=== PATIENT | female | born 1970 | race Caucasian/White ===

== ENCOUNTER 2017-12-04 01:01 | Emergency (ER) | payer OTHER ==
[~2017-12-04] VITALS: Ht 162.6 cm; Wt 104.3 kg
[2017-12-04 01:02] VITALS: BP 134/85
[2017-12-04] MEDS ORDERED: ULTRAM PO STA (01:30)
[2017-12-04] MEDS ORDERED: ULTRAM ONE (01:50)
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
[2017-12-04 02:31] LABS: BILIRUBIN,URINE NEGATIVE (NEGATIVE); UROBILINOGEN,URINE NORMAL (NEGATIVE)
[2017-12-04 02:35] LABS: APPEARANCE,URINE HAZY (CLEAR); UA COLOR YELLOW (YELLOW)
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
[2017-12-04 02:55] VITALS: BP 134/85
== END 2017-12-04 02:40 | disposition home or self-care (01) ==
LOC: EDBD 01:01 → ER 01:01
DX: S33.5XXA Sprain of ligaments of lumbar spine, initial encounter (principal); S23.3XXA Sprain of ligaments of thoracic spine, initial encounter; S09.90XA Unspecified injury of head, initial encounter; E07.9 Disorder of thyroid, unspecified; Z90.49 Acquired absence of other specified parts of digestive tract; Z88.2 Allergy status to sulfonamides; Z98.51 Tubal ligation status; Y04.0XXA Assault by unarmed brawl or fight, initial encounter
CPT/HCPCS: 72040; 72070; 72100; 81000; 81025; 87086; 99285

== ENCOUNTER → 2017-12-15 | Outpatient (CLI) | payer OTHER | END | disposition home or self-care (01) | LOC: LAB 18:03 | PROVIDERS: ATTEND Internal Medicine Endocrinology, Diabetes & Metabolism | DX: E03.9 Hypothyroidism, unspecified (principal); I10 Essential (primary) hypertension | CPT/HCPCS: 36415; 84439; 84443 ==

== ENCOUNTER 2018-05-03 09:54 | Emergency (ER) | payer OTHER ==
[~2018-05-03] VITALS: Ht 157.5 cm; Wt 102.5 kg
[2018-05-03 10:14] VITALS: BP 112/66
--- NOTE | 2018-05-03 10:14 | NUR ---
ARRIVAL PATIENT ARRIVED TO [facility] AMBULATORY, C/O OF SORE THROAT AND COUGH FOR THE PAST 3 WEEKS, HAS SEEN TAE LANGLEY AND GIVEN ANTIBIOTICS BUT SORE THROAT RETURNS, DECIDED TO COME TO THE ED FOR FURTHER EVAL BY EDP.
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
[2018-05-03 10:21] VITALS: BP 112/66
== END 2018-05-03 10:25 | disposition home or self-care (01) ==
LOC: ER 09:54
DX: J04.0 Acute laryngitis (principal); Z88.2 Allergy status to sulfonamides; Z90.49 Acquired absence of other specified parts of digestive tract; Z98.51 Tubal ligation status
CPT/HCPCS: 99283

== ENCOUNTER 2018-07-17 17:39 | Emergency (ER) | payer OTHER ==
[~2018-07-17] VITALS: Ht 162.6 cm; Wt 97.5 kg
[2018-07-17 17:59] VITALS: BP 138/102
[2018-07-17] MEDS ORDERED: AUGMENTIN 875-125 TABLET PO STA (18:07)
[2018-07-17] MEDS ORDERED: AUGMENTIN 875-125 TABLET ONE (18:07)
--- NOTE | 2018-07-17 18:09 | ER.PDOC ---
General Chief Complaint: Sore Throat Stated Complaint: HEADACHE SORE THROAT Time seen by MD: 19:58 Source: patient Exam Limitations: no limitations History of Present Illness Initial Comments one day of sore throat with white suff on her tonsils, no cough or runny nose no definite fever, took excedrin for pain Timing/Duration: gradual Associated Symptoms: mod sore throat Severity: moderate Allergies: Coded Allergies: Sulfa (Sulfonamide Antibiotics) (Verified Allergy, Unknown, 09/02/15) Home Meds Unable to Obtain Active Prescriptions or Reported Meds Past Medical History Medical History: thyroid disease Surgical History: cholecystectomy, other Social History Smoking: non-smoker Alcohol Use: none Drug Use: none Constitutional: denies chills Eyes: denies drainage, denies pain Ears: denies pain, denies clear discharge Nose: denies pain, denies clear discharge, denies purulent discharge Mouth: denies pain Throat: pain; denies hoarse, denies muffled Respiratory: denies cough, denies shortness of breath Cardiovascular: denies chest pain Gastrointestinal: denies abdominal pain, denies diarrhea, denies vomiting Musculoskeletal: denies back pain Skin: denies rash Neurological: denies anxiety, denies headache Hematologic/Lymphatic: denies blood clots Physical Exam General Appearance: alert, no distress Head/Neck: head nml inspection, trachea midline, cervical lymphadenopathy Eyes: eyes nml inspection, PERRL Mouth: lips, gums nml, no drooling, membranes nml Throat: no airway problems, pharyngeal erythema, tonsillar exudate, tonsillar swelling Ears/Nose: nml inspection Respiratory: no resp. distress, lungs clear CVS: reg. rate & rhythm, heart sounds nml Abdomen: non-tender Extremities: non-tender Skin Exam: Normal Color, Warm/Dry NEURO/PSYCH: oriented X3 Comments no signs of tonsilar abscess, ant lymphadenopathy, exudative pharyngitis. Results/Orders Results/Orders Orders - LIANET CASTELAN MD Amoxicillin/Potassium Clav (Augmentin 87 (07/17/18 18:07) Vital Signs Date Time Temp Pulse Resp B/P (MAP) Pulse Ox O2 Delivery O2 Flow Rate FiO2 07/17/18 17:59 98.3 100 18 138/102 (114) 98 Room Air 98.3 07/17/18 17:55 98.3 100 18 98.3 07/17/18 17:55 98.3 100 18 98 Room Air 98.3 Administered Medications Medications (Trade) Dose Ordered Sig/Rex Route PRN Reason Start Time Stop Time Status Last Admin Dose Admin Amoxicillin/ Clavulanate Potassium (Augmentin 875-125 Tablet) 1 each STAT STAT PO 07/17/18 18:07 07/17/18 18:08 UNV 07/17/18 18:09 1 EACH Departure Time of Disposition: 18:08 Disposition: 09 ADMITTED INPATIENT Impression: Primary Impression: Pharyngitis Condition: Stable Patient Instructions: Sore Throat, [id number] Referrals: QUYEN ALAS LANDSCAPE ARTIST (PCP) PRIMARY CARE PROVIDER Additional Instructions: return for any worsening symptoms Scripts Unable to Obtain Active Prescriptions or Reported Meds Duration or Time Spent with Pa: 10 LIANET CASTELAN MD July 17, 2018 18:09
[2018-07-17 18:11] VITALS: BP 138/102
== END 2018-07-17 18:15 | disposition other institution (70) ==
LOC: ER 17:39
DX: J02.9 Acute pharyngitis, unspecified (principal); E07.9 Disorder of thyroid, unspecified; Z88.2 Allergy status to sulfonamides; Z90.49 Acquired absence of other specified parts of digestive tract
CPT/HCPCS: 99285

== ENCOUNTER 2018-08-04 22:12 | Emergency (ER) | payer OTHER ==
[~2018-08-04] VITALS: Ht 157.5 cm; Wt 98.4 kg
[2018-08-04 22:40] VITALS: BP 154/108
[2018-08-04 23:50] VITALS: BP 149/99
[2018-08-05 00:35] VITALS: BP 131/78
--- NOTE | 2018-08-05 00:48 | DIREP ---
PROCEDURE:XRAY KNEE 3 VIEWS-LT COMPARISON:None. INDICATIONS:KNEE PAIN FINDINGS: BONES:Normal. JOINTS:Normal, except for mild degenerative arthritis. SOFT TISSUES:Normal. OTHER:No additional findings. CONCLUSION:Mild degenerative arthritis of the left knee. No fracture or subluxation. Dictated by: John Duvall M.D. on 08/05/2018 at 00:47 AM
[2018-08-05] MEDS ORDERED: TORADOL IM STA (01:20)
--- NOTE | 2018-08-05 01:20 | ER.PDOC ---
General Chief Complaint: Requesting Medical Care Stated Complaint: KNEE PAIN Time seen by MD: 01:10 Source: patient Exam Limitations: no limitations History of Present Illness Initial Comments 48 YO FEMALE WITH LEFT KNEE PAIN X 2 WKS. PAIN PROGRESSIVELY WORSEN THROUGH THE DAY. SHE IS UNAWARE OF ANY INJURIES.. 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 PAIN IS 8/10, CONSTANT. SHE DENIES FEVER OR CHILLS. SHE IS NOT TAKEN ANY MEDICATIONS FOR THE PAIN. Onset: last week Recent Injury: No Severity: severe Exacerbated By: walking movement Relieved By: nothing Prior symptoms/Treatment: No Similar symptoms previous, No Recenly Seen, No Treated by Doctor, No Recently Hospitalized Allergies: Coded Allergies: Sulfa (Sulfonamide Antibiotics) (Verified Allergy, Unknown, 09/02/15) Home Meds Unable to Obtain Active Prescriptions or Reported Meds Past Medical History Medical History: thyroid disease (THYROID CANCER) Surgical History: cholecystectomy, tubal, other Family History Significant Family History: no pertinent family hx Social History Smoking: non-smoker Alcohol Use: none Drug Use: none Reviewed Nursing Reviewed: Nursing Assessment Review of Systems Constitutional: denies chills, denies fever, denies weakness EENTM: denies throat pain Respiratory: denies cough, denies shortness of breath Cardiovascular: denies chest pain, denies palpitations Gastrointestinal: denies abdominal pain, denies nausea, denies vomiting Genitourinary: denies dysuria Musculoskeletal: denies back pain Skin: denies change in color Psychiatric/Neurological: denies paresthesia, denies tingling Physical Exam General Appearance: Alert Lower Extremity: tenderness (LEFT KNEE ANTERIOR), swelling (MILD SWELLING, NO EFFUSION, NO ERYTHEMA, NO WARMTH.) Joint Exam: crepitus (LEFT KNEE JOINT), painful weight bearing Vascular: no vascular compromise, pulses full/equal Neuro/Psych: sensation nml, motor nml, oriented x3 Skin: color nml Back/Neck: nml inspection EENT: eyes inspection nml Respiratory: no resp distress CVS: reg rate & rhythm Results/Orders Results/Orders Orders - JS VIDES MD Xr Knee Lt 3v (08/04/18 23:51) Ketorolac Tromethamine (Toradol) (08/05/18 01:20) Ketorolac Tromethamine (Toradol) (08/05/18 01:36) Vital Signs Date Time Temp Pulse Resp B/P (MAP) Pulse Ox O2 Delivery O2 Flow Rate FiO2 08/05/18 02:26 98.8 90 18 96 Room Air 08/05/18 01:48 98.8 90 18 96 Room Air 98.8 08/05/18 01:36 74 18 121/86 (98) 98 Room Air 08/05/18 00:35 80 18 131/78 (95) 99 Room Air 08/04/18 23:50 80 18 149/99 (116) 98 Room Air 08/04/18 22:40 98.8 90 18 154/108 (123) 96 Room Air 98.8 08/04/18 22:40 98.8 90 18 98.8 07/17/18 18:11 100 Administered Medications Medications (Trade) Dose Ordered Sig/Rex Route PRN Reason Start Time Stop Time Status Last Admin Dose Admin Ketorolac Tromethamine (Toradol) 60 mg STAT STAT IM 08/05/18 01:20 08/05/18 01:22 DC 08/05/18 01:41 60 MG EKG/XRAY/CT/US XRAY: knee (LEFT) XRAY Comments: Mild degenerative arthritis of the left knee. No fracture or Departure Time of Disposition: 01:21 Disposition: 01 HOME, SELF-CARE Impression: Primary Impression: DJD (degenerative joint disease) of knee Condition: Stable Patient Instructions: Arthritis, Degenerative-Brief Referrals: QUYEN ALAS RUG CLEANER HELPER (PCP) PRIMARY CARE PROVIDER LIANET DAVEY MD SPECIALIST FOLLOW UP WITH DR. DAVEY FOR FURTHER EVALUATION IN 3-5 DAYS. RETURN TO THE ER IF YOUR CONDITION WORSEN Additional Instructions: ACTIVITY TOLERATED. Scripts Unable to Obtain Active Prescriptions or Reported Meds Comments NAPROSYN, TRAMADOL, TYLENOL Duration or Time Spent with Pa: 30 MIN Problem Qualifiers Primary Impression: DJD (degenerative joint disease) of knee Osteoarthritis type: primary Laterality: left Qualified Codes: M17.12 - Unilateral primary osteoarthritis, left knee JS VIDES MD August 05, 2018 01:20
[2018-08-05 01:36] VITALS: BP 121/86
[2018-08-05] MEDS ORDERED: TORADOL ONE (01:36)
[2018-08-05 02:26] VITALS: BP 121/86
== END 2018-08-05 01:52 | disposition home or self-care (01) ==
LOC: ER 22:12
DX: M17.12 Unilateral primary osteoarthritis, left knee (principal)
CPT/HCPCS: 73562; 96372; 99284; J1885

== ENCOUNTER → 2018-08-30 | Outpatient (CLI) | payer SELFPAY | END | disposition home or self-care (01) | LOC: LAB 18:24 | PROVIDERS: ATTEND Internal Medicine Endocrinology, Diabetes & Metabolism | DX: E89.0 Postprocedural hypothyroidism (principal) | CPT/HCPCS: 36415; 84443 ==

== ENCOUNTER 2018-10-12 07:22 | Emergency (ER) | payer SELFPAY ==
[~2018-10-12] VITALS: Ht 157.5 cm; Wt 90.7 kg
[2018-10-12 07:50] VITALS: BP 141/77
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
[2018-10-12] MEDS ORDERED: BICILLIN L-A IM STA (07:59)
--- NOTE | 2018-10-12 08:03 | ER.PDOC ---
General Chief Complaint: Sore Throat Stated Complaint: SORE THROAT Time seen by MD: 08:00 Source: patient Exam Limitations: no limitations History of Present Illness Timing/Duration: gradual Associated Symptoms: mod sore throat Severity: moderate Worsen By: nothing Allergies: Coded Allergies: Sulfa (Sulfonamide Antibiotics) (Verified Allergy, Unknown, 09/02/15) Home Meds Unable to Obtain Active Prescriptions or Reported Meds Past Medical History Medical History: no pertinent history, thyroid disease Surgical History: cholecystectomy, other Social History Smoking: non-smoker Alcohol Use: none Drug Use: none Reviewed Nursing Reviewed: Vital Signs, Abn. Noted All Other Systems: Reviewed and Negative Physical Exam General Appearance: alert, no distress Head/Neck: head nml inspection, neck nml inspection, trachea midline, no lymphadenopathy, thyroid nml Mouth: lips, gums nml, no drooling, no thrush, membranes nml Throat: pharyngeal erythema, tonsillar exudate Ears/Nose: nml inspection Respiratory: no resp. distress, lungs clear CVS: reg. rate & rhythm, heart sounds nml Abdomen: non-tender, no organomegaly Extremities: non-tender, ROM nml Skin Exam: Normal Color, Warm/Dry NEURO/PSYCH: oriented X3, mood/effect nml Results/Orders Results/Orders Orders - STEPHAN SERNA MD Penicillin G Benzathine (Bicillin L-A) (10/12/18 07:59) Vital Signs Date Time Temp Pulse Resp B/P (MAP) Pulse Ox O2 Delivery O2 Flow Rate FiO2 10/12/18 07:50 98.3 107 18 141/77 (98) 98 Room Air 10/12/18 07:45 98.3 107 18 98 Room Air 10/12/18 07:44 98.3 107 18 Departure Time of Disposition: 08:22 Disposition: 01 HOME, SELF-CARE Impression: Primary Impression: Acute tonsillitis Condition: Stable Referrals: QUYEN ALAS THUMB SEWER (PCP) PRIMARY CARE PROVIDER Scripts Unable to Obtain Active Prescriptions or Reported Meds Duration or Time Spent with Pa: 20 min STEPHAN SERNA MD Oct 12, 2018 08:03
[2018-10-12] MEDS ORDERED: BICILLIN L-A IM ONE (08:07)
[2018-10-12 08:10] VITALS: BP 136/80
[2018-10-12 08:11] VITALS: BP 136/80
== END 2018-10-12 08:19 | disposition home or self-care (01) ==
LOC: ER 07:22
DX: J03.90 Acute tonsillitis, unspecified (principal); Z88.2 Allergy status to sulfonamides; Z90.49 Acquired absence of other specified parts of digestive tract
CPT/HCPCS: 96372; 99283; J0561

== ENCOUNTER → 2018-12-15 | Outpatient (CLI) | payer OTHER ==
[2018-12-15 12:24] LABS: BASOPHIL % 0.6 % (0.0-0.2); EOSINOPHIL # 0.1 10^3/uL (0.0-0.2); EOSINOPHIL % 1.7 % (0.0-5.0); LYMPHOCYTES # 1.6 10^3/uL (1.0-4.8); LYMPHOCYTES % 29.6 % (24.0-44.0); MEAN CELL HGB 27.5 pg (26-34); MEAN CELL HGB CONCENTRATION 33.1 g/dL (33-37); MEAN CORP VOLUME 83.3 fL (78-100); MEAN PLATELET VOLUME 9.9 fL (7.8-11.0); MONOCYTES # 0.4 10^3/uL (0.3-0.8); MONOCYTES % 6.9 % (5.0-12.0); NEUTROPHIL # 3.3 10^3/uL (1.8-7.7); RED CELL DISTRIBUTION WIDTH 15.4 % (11.5-14.5); WHITE BLOOD CELL 5.4 10^3/uL (4.5-11.0)
[2018-12-15 12:47] LABS: CALCIUM 8.9 mg/dL (8.4-10.5); CARBON DIOXIDE 29.7 mmol/L (20.0-32)
== END | disposition home or self-care (01) ==
LOC: LAB 11:59
PROVIDERS: ATTEND Nurse Practitioner Women's Health
DX: N93.9 Abnormal uterine and vaginal bleeding, unspecified (principal); E55.9 Vitamin D deficiency, unspecified; Z68.33 Body mass index [BMI] 33.0-33.9, adult
CPT/HCPCS: 36415; 80053; 80061; 82306; 83036; 84439; 84443; 85025

== ENCOUNTER → 2018-12-23 | Outpatient (CLI) | payer OTHER ==
--- NOTE | 2018-12-23 13:51 | DIREP ---
PROCEDURE:US PELVIC FOLLOWED BY TRANSVAGINAL COMPARISON:None. INDICATIONS:N93.9 ABN UTERINE AND VAGINAL BLEEDING TECHNIQUE:Pelvic ultrasound using transabdominal technique. Endovaginal images were also obtained for better assessment of the uterus and adnexa. FINDINGS: LMP 11/23/2018 UTERUS:Size is 9.3 x 5.4 x 4.8 cm. The myometrium is heterogeneous. Solid heterogeneous lesion noted in the fundus measuring 3.2 x 3.3 x 3.1 cm. This mass appears submucosal component and partially splays the endometrium. Uncertain what percentage is intracavitary. There is edge shadow artifact favoring leiomyoma. ENDOMETRIUM:Thickness is 1.1 cm. RIGHT OVARY:Normal appearance. 3.5 x 2.0 x 1.8 cm. Dominant follicle incidentally noted. LEFT OVARY:No left ovary identified. No left adnexal mass demonstrated. CUL-DE-SAC:Normal. OTHER:Negative. CONCLUSION: 1. Uterus: Submucosal leiomyoma at the fundus. Dictated by: TIMOTEOA Physician on 12/23/2018 at 01:17 PM audrey
== END | disposition home or self-care (01) ==
LOC: RAD 11:14
PROVIDERS: ATTEND Nurse Practitioner Women's Health
DX: D25.0 Submucous leiomyoma of uterus (principal)
CPT/HCPCS: 76830; 76856

== ENCOUNTER → 2019-01-18 | Outpatient (CLI) | payer OTHER | END | disposition home or self-care (01) | LOC: LAB 16:19 | PROVIDERS: ATTEND Nurse Practitioner Women's Health | DX: N93.9 Abnormal uterine and vaginal bleeding, unspecified (principal) | CPT/HCPCS: 36415; 83001 ==

== ENCOUNTER 2019-02-27 09:29 | Emergency (ER) | payer OTHER ==
[~2019-02-27] VITALS: Ht 157.5 cm; Wt 81.2 kg
[2019-02-27 09:31] VITALS: BP 147/87
[2019-02-27 09:41] VITALS: BP 147/87
[2019-02-27] MEDS ORDERED: MORPHINE SULFATE ONE (09:51)
[2019-02-27] MEDS ORDERED: MORPHINE SULFATE IV STA (10:04)
--- NOTE | 2019-02-27 10:07 | NUR ---
EKG JAYESH RT IN ROOM FOR EKG AT THIS TIME.
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
--- NOTE | 2019-02-27 10:09 | PCM.EKG ---
[facility] Test Date: 2019-02-27 Test Time: 10:06:12 Pat Name: KING NUGENT Department: Room: Gender: F Epic Kaleidoscope Analyst: RT : 1970 Requested By: BHARATH KIM Order Number: [id number] Reading MD: Bharath Kim Measurements Intervals [place] Rate: 81 P: 19 WI: 148 QRS: -36 QRSD: 92 T: 25 QT: 396 QTc: 460 Interpretive Statements Sinus rhythm Left axis deviation Compared to ECG 09/16/2017 09:13:25 Left-axis deviation now present Electronically Signed On 03-06-2019 9:56:27 PROFESSIONAL ARCHITECT by Bharath Kim Please click the below link to view image of tracing.
[2019-02-27 10:14] LABS: BASOPHIL # 0.1 10^3/uL (0.0-0.1); BASOPHIL % 0.8 % (0.0-0.2); EOSINOPHIL # 0.1 10^3/uL (0.0-0.2); LYMPHOCYTES # 0.9 10^3/uL (1.0-4.8); LYMPHOCYTES % 15.3 % (24.0-44.0); MEAN CORP HGB 28.4 pg (26-34); MONOCYTES # 0.8 10^3/uL (0.3-0.8); MONOCYTES % 13.5 % (5.0-12.0); NEUTROPHIL # 4.2 10^3/uL (1.8-7.7); NEUTROPHILS % 67.9 % (41.0-85.0); PLATELET COUNT 275 10^3/uL (150-400); RED CELL DISTRIBUTION WIDTH 14.1 % (11.5-14.5)
--- NOTE | 2019-02-27 10:19 | NUR ---
CT PT TO CT WITH JAMIE VIA STRETCHER AT THIS TIME.
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
[2019-02-27 10:56] LABS: ALANINE AMINOTRANSFERASE(ML) 18 U/L (12-78); ALKALINE PHOSPHATASE 69 U/L (50-136); ASPARTATE AMINO TRANSFERASE 19 U/L (0-35); CALCIUM 8.8 mg/dL (8.4-10.5); CARBON DIOXIDE 28.6 mmol/L (20.0-32); GLUCOSE 93 mg/dL (70-110)
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
[2019-02-27 12:20] VITALS: BP 147/87
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
== END 2019-02-27 11:57 | disposition home or self-care (01) ==
LOC: EDBD 09:29 → ER 09:29
DX: S13.4XXA Sprain of ligaments of cervical spine, initial encounter (principal); S03.9XXA Sprain of joints and ligaments of unspecified parts of head, initial encounter; S43.402A Unspecified sprain of left shoulder joint, initial encounter; Z90.89 Acquired absence of other organs; Z88.2 Allergy status to sulfonamides; V47.5XXA Car driver injured in collision with fixed or stationary object in traffic accident, initial encounter; Y93.89 Activity, other specified; Y92.89 Other specified places as the place of occurrence of the external cause; Y99.8 Other external cause status
CPT/HCPCS: 36415; 70450; 72125; 80053; 80320; 82550; 82948; 84484; 85025; 85610; 85730; 93005; 96374; 99285; J2270

== ENCOUNTER 2019-06-09 11:14 | Emergency (ER) | payer OTHER ==
[~2019-06-09] VITALS: Ht 162.6 cm; Wt 77.1 kg
--- NOTE | 2019-06-09 11:25 | NUR ---
ARRIVAL PT ARRIVED TO ER WITH C/O COUGH AND NASAL DRAINAGE X2 WEEKS. BEDSIDE MONITORS APPLIED. VITAL SIGNS STABLE. CALL LIGHT WITHIN REACH.
[2019-06-09 11:34] VITALS: BP 146/91
[2019-06-09 11:39] VITALS: BP 146/91
[2019-06-09 12:08] VITALS: BP 130/88
--- NOTE | 2019-06-09 12:22 | ER.PDOC ---
General Chief Complaint: Cough/Congestion Stated Complaint: FEVER, COUGH, DIFFICULTY BREATHING Time seen by MD: 11:37 Source: patient Exam Limitations: no limitations History of Present Illness Initial Comments pt has been having cough with greenish sputum from last few days. Denies any fever, recent travel or any other symptoms. Severity: mild Allergies: Coded Allergies: Sulfa (Sulfonamide Antibiotics) (Verified Allergy, Unknown, 09/02/15) Home Meds Unable to Obtain Active Prescriptions or Reported Meds Vital Signs First Vital Signs Date Time Temp Pulse Resp B/P (MAP) Pulse Ox O2 Delivery O2 Flow Rate FiO2 06/09/19 11:34 97.7 87 16 100 06/09/19 11:39 146/91 (109) Room Air Last Vital Signs Date Time Temp Pulse Resp B/P (MAP) Pulse Ox O2 Delivery O2 Flow Rate FiO2 06/09/19 12:08 97.7 87 16 130/88 (102) 100 Room Air Past Medical History Medical History: thyroid disease Surgical History: cholecystectomy, tubal Social History Alcohol Use: none Drug Use: none Constitutional: denies no symptoms reported, denies see HPI, denies chills, denies diaphoresis, denies fever, denies malaise, denies weakness, denies other EENTM: denies no symptoms reported, denies see HPI, denies eye pain, denies blurred vision, denies tearing, denies double vision, denies ear pain, denies ear discharge, denies nose pain, denies nose congestion, denies throat pain, d enies throat swelling, denies mouth pain, denies mouth swelling, denies other Cardiovascular: denies no symptoms reported, denies see HPI, denies chest pain, denies edema, denies irregular heart rate, denies lightheadedness, denies pa lpitations, denies syncope, denies other Gastrointestinal: denies no symptoms reported, denies see HPI, denies abdomen distended, denies abdominal pain, denies blood streaked bowels, denies constipated, denies diarrhea, denies difficulty swallowing, denies nausea, denies poor appetite, denies poor fluid intake, denies rectal bleeding, denies vomiting, denies other Genitourinary: denies no symptoms reported, denies see HPI, denies burning, denies dysuria, denies discharge, denies frequency, denies flank pain, denies hematuria, denies incontinence, denies pain, denies urgency, denies other Musculoskeletal: denies no symptoms reported, denies see HPI, denies back pain, denies gout, denies joint pain, denies joint swelling, denies muscle pain, denies muscle stiffness, denies neck pain, denies other Skin: denies no symptoms reported, denies see HPI, denies change in color, denies change in hair/nails, denies dryness, denies lesions, denies lumps, denies rash, denies other Psychiatric/Neurological: denies no symptoms reported, denies see HPI, denies anxiety, denies depressed, denies emotional problems, denies headache, denies numbness, denies paresthesia, denies pre-existing deficit, denies seizure, denies tingling, denies tremors, denies weakness, denies other Endocrine: denies no symptoms reported, denies see HPI, denies excessive sweating, denies flushing, denies intolerance to cold, denies intolerance to heat, denies increased hunger, denies increased thrist, denies increased urine, denies unexplained weight gain, denies unexplaned weight loss, denies other Hematologic/Lymphatic: denies no symptoms reported, denies see HPI, denies anemia, denies blood clots, denies easy bleeding, denies easy bruising, denies swollen glands, denies other All Other Systems: Reviewed and Negative Physical Exam General Appearance: alert, no distress HEENT: ENT nml inspection, pharynx, voice nml Skin: no rash, nml color, warm/dry Extremities: non-tender, nml ROM, no edema Neck: nml inspection Respiratory: no resp. distress, breath sounds nml CVS: reg. rate & rhythm, heart sounds nml Abdomen: non-tender, no organomegaly NEURO/PSYCH: oriented x 3, CN's nml as tested, motor nml, sensation nml, mood/affect nml Results/Orders Results/Orders Orders - FABIAN ANDRE MD Strep Screen (06/09/19 11:35) Influenza A&B (06/09/19 11:35) Vital Signs Date Time Temp Pulse Resp B/P (MAP) Pulse Ox O2 Delivery O2 Flow Rate FiO2 06/09/19 12:08 97.7 87 16 130/88 (102) 100 Room Air 06/09/19 11:39 97.7 87 16 146/91 (109) 100 Room Air 06/09/19 11:34 97.7 87 16 06/09/19 11:34 97.7 87 16 100 Laboratory Tests Test 06/09/19 11:30 Influenza Type A Antigen NEGATIVE (NEG) Influenza B Immunofluorescence NEGATIVE (NEG) Group A Streptococcus Screen NEGATIVE (NEGATIVE) Progress Progress vitals stable. afebrile. Strep and Flu negative. Has signs of bronchitis. Will treat with ABX. Departure Time of Disposition: 12:21 Disposition: 01 HOME, SELF-CARE Impression: Primary Impression: Acute bronchitis Condition: Stable Referrals: PCP,UNKNOWN (PCP) PRIMARY CARE PROVIDER Scripts Unable to Obtain Active Prescriptions or Reported Meds Duration or Time Spent with Pa: FABIAN MEJIA MD Jun 09, 2019 12:22
== END 2019-06-09 12:29 | disposition home or self-care (01) ==
LOC: ER 11:14
DX: J20.9 Acute bronchitis, unspecified (principal); E07.9 Disorder of thyroid, unspecified; Z88.2 Allergy status to sulfonamides; Z90.49 Acquired absence of other specified parts of digestive tract
CPT/HCPCS: 87070; 87804; 87880; 99283

== ENCOUNTER → 2019-12-04 | Outpatient (CLI) | payer SELFPAY | END | disposition home or self-care (01) | LOC: LAB 11:08 | PROVIDERS: ATTEND Nurse Practitioner Women's Health | DX: C73 Malignant neoplasm of thyroid gland (principal) | CPT/HCPCS: 36415; 84439; 84443 ==

== ENCOUNTER → 2020-02-13 | Outpatient (CLI) | payer OTHER | END | disposition home or self-care (01) | LOC: LAB 14:28 | PROVIDERS: ATTEND Nurse Practitioner Women's Health | DX: E89.0 Postprocedural hypothyroidism (principal); N92.6 Irregular menstruation, unspecified | CPT/HCPCS: 36415; 83001; 84439; 84443 ==

== ENCOUNTER 2020-02-15 15:08 | Emergency (ER) | payer OTHER ==
[~2020-02-15] VITALS: Ht 162.6 cm; Wt 86.2 kg
--- NOTE | 2020-02-15 15:25 | NUR ---
ARRIVAL PT ARRIVED TO ED WITH C/O FALLING ON CAMPER STAIRS. PT REPORTS HITTING HER HEAD AT THE BASE OFHER SKULL AND HITTING HER LEFT ANTERIOR RIBS ON A GLASS TABLE. PT REPORTS BACK PAIN, NECK PAIN, HEADACHE. PT STATES SHE HAD AN EPISODE OF BLURRED VISION AND VOMITTED ONE TIME AFTER THE FALL. PT DENIES ANY NUMBNESS OR TINGLING IN EXTREMITIES AND HAS FULL RANGE OF MOTION. BEDSIDE MONITORS APPLIED. VITAL SIGNS STABLE. BED IN LOW LOCKED POSITION.
[2020-02-15 15:35] VITALS: BP 104/89
--- NOTE | 2020-02-15 15:51 | ER.PDOC ---
General Chief Complaint: General Complaint Stated Complaint: LEFT PAIN FALL,HEAD INJURY Time seen by MD: 15:44 Source: patient Exam Limitations: no limitations History of Present Illness Initial Comments Patient slipped on travel trailer step and fell this morning striking head on step and ribs on a table edge. She did not lose consciousness but was dazed and vomited shortly thereafter. She c/o severe left rib pain. Occurred: this morning Where: home Severity: moderate Injuries/Pain Location: head, chest Context: Slipped Loss of Consciousness: Dazed Modifying Factors: improves with immobilization Associated Symptoms: chest pain (left rib pain), headache Allergies: Coded Allergies: Sulfa (Sulfonamide Antibiotics) (Verified Allergy, Unknown, 09/02/15) MEDS Unable to Obtain Active Prescriptions or Reported Meds Past Medical History Medical History: cancer, hypertension, thyroid disease, other Surgical History: cholecystectomy, other (thyroid) Family History Significant Family History: no pertinent family hx Social History Smoking: non-smoker Alcohol Use: occassionally Drug Use: none Review of Systems Constitutional: denies no symptoms reported, denies see HPI, denies chills, denies diaphoresis, denies fever, denies malaise, denies weakness, denies other Eyes: denies no symptoms reported, denies see HPI, denies blindness, denies blurred vision, denies drainage, denies decreased acuity, denies foreign body sensation, denies inflammation, denies pain, denies photophobia, denies previous injury, denies shadows, denies tunnel vision, denies vision change, denies contact lenses, denies glasses, denies other Ears, Nose, Mouth, Throat: denies no symptoms reported, denies see HPI, denies ear pain, denies ear discharge, denies nose pain, denies nose discharge, denies epistaxis, denies mouth pain, denies mouth swelling, denies loose teeth, denies throat pain, denies throat swelling Respiratory: shortness of breath (hurts to take a deep breath) Cardiovascular: chest pain (left ribs) Gastrointestinal: denies no symptoms reported, denies see HPI, denies abdominal pain, denies constipation, denies diarrhea, denies nausea, denies vomiting, denies other Genitourinary: denies no symptoms reported, denies see HPI, denies discharge, denies dysuria, denies frequency, denies hematuria, denies pain, denies other Musculoskeletal: denies no symptoms reported, denies see HPI, denies back pain, denies gout, denies joint pain, denies joint swelling, denies muscle pain, denies muscle stiffness, denies neck pain, denies other Psychiatric/Neurological: headache All Other Systems: Reviewed and Negative Physical Exam General Appearance: No Apparent Distress, WD/WN Head: No Evidence of Injury Eyes: bilateral eye normal inspection, bilateral eye PERRL, bilateral eye EOMI Ears, Nose, Mouth, Throat: Hearing Grossly Normal, No Evidence of ENT Injury, No Dental Injury Neck: Non-Tender, Normal Alignment Cardiovascular/Respiratory: Regular Rate, Rhythm, Normal Breath Sounds, No Respiratory Distress, Rib Tenderness (left lateral lower) Gastrointestinal: Normal Bowel Sounds, Non Tender Back: Normal Inspection, No CVA Tenderness, No Vertebral Tenderness Extremities: No Evidence of Injury, Non-Tender Neurologic/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: 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 as Tested, Alert, Normal Mood/Affect, Oriented x 3 Karlos Coma Score Best Eye Response: (4) Open Spontaneously Best Verbal Response: (5) Oriented Best Motor Response: (6) Obeys Commands Results/Orders Results/Orders Orders - DAVID SALDAÑA DO Xr Ribs Lt W/Cxr (02/15/20 15:49) Ct Head Wo Contrast (02/15/20 15:49) Vital Signs Date Time Temp Pulse Resp B/P (MAP) Pulse Ox O2 Delivery O2 Flow Rate FiO2 02/15/20 15:35 98.9 65 16 104/89 (94) 97 Room Air 02/15/20 15:35 98.9 65 16 02/15/20 15:35 98.9 65 16 97 EKG/XRAY/CT/US XRAY: chest (no pneumothorax or rib fx seen) CT Comments: CT head normal ER DEPART Departure Time of Disposition: 16:36 Disposition: 01 HOME, SELF-CARE Impression: Primary Impression: Fall Additional Impressions: Contusion of rib on left side Concussion Condition: Stable Patient Instructions: Concussion and Brain Injury, Rib Contusion Referrals: AMAYA MORRISON PHOTOCOMPOSING MACHINE OPERATOR (PCP) PRIMARY CARE PROVIDER Additional Instructions: Alternate Tylenol and Motrin per package instructions every 4 hours as needed for pain. You may augment pain control with mild narcotic as prescribed. Return to ER if you experience any difficulty breathing or swallowing, or for any emergent concerns. Scripts Unable to Obtain Active Prescriptions or Reported Meds Duration or Time Spent with Pa: 25 min Problem Qualifiers Primary Impression: Fall Encounter type: initial encounter Qualified Codes: W19.XXXA - Unspecified fall, initial encounter Additional Impressions: Contusion of rib on left side Encounter type: initial encounter Qualified Codes: S20.212A - Contusion of left front wall of thorax, initial encounter Concussion Encounter type: initial encounter Loss of consciousness presence/duration: without LOC Qualified Codes: S06.0X0A - Concussion without loss of consciousness, initial encounter DAVID SALDAÑA DO Feb 15, 2020 15:50
--- NOTE | 2020-02-15 16:16 | DIREP ---
PROCEDURE:CT HEAD OR BRAIN W/O CONTRAST COMPARISON:[facility], CT, CT HEAD BRAIN W/O CONTRAST, 02/27/2019, 10:20 AM. INDICATIONS:fall injury TECHNIQUE:CT images were created without intravenous contrast. FINDINGS: VENTRICLES:The ventricles are normal in size and configuration. CEREBRUM:Normal cerebral morphology with appropriate adams white matter differentiation. CEREBELLUM:Negative. BRAINSTEM:Negative. BASAL CISTERNS:Negative. HEMORRHAGE:No MASS LESION:No ACUTE INFARCT:No SKULL:Normal. SINUSES:Normal. OTHER:None CONCLUSION:Normal examination. Dictated by: Eduar Guevara M.D. on 02/15/2020 at 04:14 PM
--- NOTE | 2020-02-15 16:28 | DIREP ---
PROCEDURE:XRAY RIBS W/PA CHEST 3VWS-LT COMPARISON:None. INDICATIONS:fall injury TECHNIQUE:PA chest and 4 view of the left ribs FINDINGS: Left RIBS:No fracture. LUNGS/PLEURA: No significant pulmonary parenchymal abnormalities. CARDIAC: Normal size cardiac silhouette and normal vascularity. MEDIASTINUM: Normal. BONES: Normal. OTHER: Surgical clips across the lower neck and in the right upper quadrant of the abdomen. CONCLUSION: 1. No fractures. 2. No cardiopulmonary abnormalities. Dictated by: Perico Hall M.D. on 02/15/2020 at 04:24 PM
== END 2020-02-15 16:40 | disposition home or self-care (01) ==
LOC: ER 15:08
DX: S06.0X0A Concussion without loss of consciousness, initial encounter (principal); S20.212A Contusion of left front wall of thorax, initial encounter; I10 Essential (primary) hypertension; Z88.2 Allergy status to sulfonamides; Z90.49 Acquired absence of other specified parts of digestive tract; W01.0XXA Fall on same level from slipping, tripping and stumbling without subsequent striking against object, initial encounter; Y93.89 Activity, other specified; Y92.89 Other specified places as the place of occurrence of the external cause; Y99.8 Other external cause status
CPT/HCPCS: 70450; 99284; 71101-LT

== ENCOUNTER → 2020-02-21 | Outpatient (CLI) | payer OTHER ==
--- NOTE | 2020-02-21 10:39 | DIREP ---
PROCEDURE:MAMMO BILATERAL DIAGNOSTIC COMPARISON:[facility], MAMMO BILATERAL SCREENING, 04/14/2017, 02:06 PM. [facility], US BREAST LIMITED RT, 02/21/2020, 10:06 AM. [facility], MAMMO DIAGNOSTIC RT, 05/05/2017, 01:56 PM. INDICATIONS:LUMP IN THE RIGHT BREAST BREAST COMPOSITION:There are scattered areas of fibroglandular density. DIAGNOSTIC MAMMOGRAM: Right views: MLO, CC, mediolateral, and spot compression magnification (MLO and CC) Left views: MLO and CC Computer Assisted Detection (CAD) was utilized. There are no grouped microcalcifications, masses, or architectural distortions to suggest malignancy. There is no significant change as compared to the prior examinations. BREAST SONOGRAM:Sonography of the right breast and axilla was performed. No cysts or solid masses are demonstrated in the breast. The axilla appears unremarkable. IMPRESSION:No mammographic evidence of malignancy. RECOMMENDATIONS:Routine Screening Mammography per [place] [employer] guidelines. OVERALL FINAL ASSESSMENT:BI-RADS 1 - Negative Mammogram Dictated by: Gianni Pritchett M.D. on 02/21/2020 at 10:30 AM
--- NOTE | 2020-02-21 10:44 | DIREP ---
See separate diagnostic mammography report. Dictated by: Gianni Pritchett M.D. on 02/21/2020 at 10:42 AM
== END | disposition home or self-care (01) ==
LOC: RAD 09:12
PROVIDERS: ATTEND Nurse Practitioner Women's Health
DX: N63.11 Unspecified lump in the right breast, upper outer quadrant (principal); R92.8 Other abnormal and inconclusive findings on diagnostic imaging of breast
CPT/HCPCS: 76641; 77066

== ENCOUNTER 2020-03-21 14:33 | Emergency (ER) | payer OTHER ==
[~2020-03-21] VITALS: Ht 162.6 cm; Wt 88.0 kg
[2020-03-21 14:33] VITALS: BP 134/91
[~2020-03-21 14:33] MED LIST: DECADRON ONE; NS 1000ML 1,000 ML IV STA; NS 1000ML 1,000 ML ONE
[2020-03-21 14:39] VITALS: BP 134/91
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
--- NOTE | 2020-03-21 14:50 | NUR ---
CT PT TO CT VIA STRETCHER IN STABLE CONDITION.
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
[2020-03-21 15:30] VITALS: BP 128/88
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
--- NOTE | 2020-03-21 15:45 | NUR ---
status pt son at bedside. Update on status given.
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
[2020-03-21 15:57] LABS: BASOPHIL % 0.2 % (0.0-0.2); EOSINOPHIL % 0.1 % (0.0-5.0); LYMPHOCYTES # 0.92 10^3/uL1 (1.0-4.8); LYMPHOCYTES % 4.7 % (24.0-44.0); MEAN CORP HGB 25.9 pg (26-34); MONOCYTES # 1.5 10^3/uL (0.3-0.8); MONOCYTES % 7.4 % (5.0-12.0); NEUTROPHIL # 17.3 10^3/uL (1.8-7.7); NEUTROPHILS % 87.2 % (41.0-85.0); PLATELET COUNT 285 10^3/uL (150-400)
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
--- NOTE | 2020-03-21 16:00 | NUR ---
chest tube DR SALDAÑA AT BEDSIDE WELL RT X2 FOR CONSCIOUS SEDATION. PROCEDURE EXPLAINED TO PT AND SON. CT PLACEMENT PERFORMED, PLACED TO WATER SEAL. PT TOLERATED WELL.
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
[2020-03-21] MEDS ORDERED: LIDOCAINE 1% VIAL ONE (16:07)
--- NOTE | 2020-03-21 16:26 | PCM.EKG ---
[facility] Test Date: 2020-03-21 Test Time: 15:41:32 Pat Name: KING NUGENT Department: Room: Gender: F Ux Consultant: ED : 1970 Requested By: DAVID MILLER Order Number: [id number] Reading MD: Autumn Miller Measurements Intervals [place] Rate: 90 P: 55 HI: 162 QRS: -48 QRSD: 107 T: 55 QT: 394 QTc: 482 Interpretive Statements Sinus rhythm LAD, consider left anterior fascicular block Compared to ECG 02/27/2019 10:06:12 Left-axis deviation no longer present Electronically Signed On 03-25-2020 7:07:17 [employer] by Autumn Miller Please click the below link to view image of tracing.
[2020-03-21 16:30] VITALS: BP 124/84
[2020-03-21] MEDS ORDERED: DILAUDID ONE (16:38)
[2020-03-21] MEDS ORDERED: DILAUDID IV STA (16:38)
[2020-03-21 16:41] LABS: ALANINE AMINOTRANSFERASE(ML) 63 U/L (12-78); ALKALINE PHOSPHATASE 74 U/L (50-136); ASPARTATE AMINO TRANSFERASE 109 U/L (0-35); CALCIUM 7.5 mg/dL (8.4-10.5); CARBON DIOXIDE 24.5 mmol/L (20.0-32); GLUCOSE 145 mg/dL (70-110)
--- NOTE | 2020-03-21 16:55 | NUR ---
[facility] PT TAKEN BY [facility] IN STABLE CONDITION. REPORT CALLED TO MARTINEZ IN [facility] ER.
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
[2020-03-21 17:06] LABS: APPEARANCE,URINE CLEAR (CLEAR); BILIRUBIN,URINE NEGATIVE (NEGATIVE); UA COLOR YELLOW (YELLOW); UROBILINOGEN,URINE NORMAL (NEGATIVE)
[2020-03-21 17:22] LABS: DIFFERENTIAL COMMENT NORMAL; LYMPHOCYTE 7 % (25-36); MONOCYTE 9 % (3-9); SEGMENTED NEUTROPHILS 84 % (31-76)
[2020-03-21] MEDS ORDERED: AMIDATE IV ONE (17:39)
== END 2020-03-21 16:55 | disposition short-term general hospital (02) ==
LOC: ER 14:33 → EDBD 14:33 → ER 16:55
DX: S27.0XXA Traumatic pneumothorax, initial encounter (principal); S22.22XA Fracture of body of sternum, initial encounter for closed fracture; I10 Essential (primary) hypertension; E07.9 Disorder of thyroid, unspecified; S22.5XXA Flail chest, initial encounter for closed fracture; T79.A12A Traumatic compartment syndrome of left upper extremity, initial encounter; V43.62XA Car passenger injured in collision with other type car in traffic accident, initial encounter; Y92.410 Unspecified street and highway as the place of occurrence of the external cause; Z88.2 Allergy status to sulfonamides; Z20.822 Contact with and (suspected) exposure to COVID-19; Z90.49 Acquired absence of other specified parts of digestive tract; Y93.89 Activity, other specified; Y92.89 Other specified places as the place of occurrence of the external cause; Y99.8 Other external cause status
CPT/HCPCS: 32551; 36415; 70450; 71045 ×2; 71260; 72125; 73030; 73060; 73070; 73090; 73110; 74177; 80053; 80307; 81000; 82550; 82553; 84484; 84703; 85025; 85610; 85730; 86900; 87077; 87086; 87186; 87426; 93005; 96361; 96374; 99291; J1100; J1170; J2001; J7030; Q9965; 32556; 80320; J3490

== ENCOUNTER 2020-07-07 14:04 | Emergency (ER) | payer OTHER ==
[~2020-07-07] VITALS: Ht 162.6 cm; Wt 90.7 kg
[2020-07-07 14:20] VITALS: BP 144/83
[2020-07-07] MEDS ORDERED: ULTRAM PO STA (14:23)
--- NOTE | 2020-07-07 14:47 | ER.PDOC ---
General Chief Complaint: Requesting Medical Care Stated Complaint: SHOULDER INJURY Time seen by MD: 14:55 Source: patient Exam Limitations: no limitations History of Present Illness Occurred: last week Where: home Severity: mild Context: fall Allergies: Coded Allergies: Sulfa (Sulfonamide Antibiotics) (Verified Allergy, Unknown, 09/02/15) Past Medical History Medical History: cancer, hypertension, thyroid disease Surgical History: cholecystectomy, tubal, other Social History Drug Use: none Reviewed Nursing Reviewed: Vital Signs, Abn. Noted Review of Systems All Other Systems: Reviewed and Negative Physical Exam Shoulder: see diagram, tenderness, swelling, AC drop-off, limited ROM Upper Extremities: uninjuried below shoulder 1 - AC DISLOCATION Neuro: sensation nml, motor nml Vascular: no vascular compromise Skin: warm/dry Head/ENT: nml inspection, pharynx nml Neck/Back: non-tender, nml inspection, painless ROM CVS: reg rate & rhythm, heart sounds nml Abdomen: non-tender, no organomegaly Splinting Splinting : Pre-Made Type: Results/Orders Results/Orders Orders - STEPHAN SERNA MD Xr Clavicle Rt (07/07/20 14:21) Xr Clavicle Lt (07/07/20 14:21) Tramadol Hcl (Ultram) (07/07/20 14:23) Vital Signs Date Time Temp Pulse Resp B/P (MAP) Pulse Ox O2 Delivery O2 Flow Rate FiO2 07/07/20 14:20 98.8 94 20 94 ER DEPARTURE Departure Time of Disposition: 15:00 Disposition: 01 HOME, SELF-CARE Impression: Primary Impression: Acromioclavicular (AC) joint injury Condition: Stable Referrals: PCP,UNKNOWN (PCP) PRIMARY CARE PROVIDER Justification of Admit/Observ Is this patient coming directl: Yes *Level of Care/Services Provid: ER Admit Criteria Met: NO Justification Content JUSTIFICATION FOR ADMISSION Instructions 1. Open link in [employer] Browser. [email or web address] 2. Copy and paste data needed to meet the Admit Criteria. 3. Modify and document the needful data to meet the Admit Criteria. STEPHAN SERNA MD Jul 07, 2020 14:47
[2020-07-07] MEDS ORDERED: ULTRAM ONE (14:54)
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
== END 2020-07-07 14:58 | disposition home or self-care (01) ==
LOC: ER 14:04
DX: S49.81XA Other specified injuries of right shoulder and upper arm, initial encounter (principal); S49.82XA Other specified injuries of left shoulder and upper arm, initial encounter; W19.XXXA Unspecified fall, initial encounter; Y93.89 Activity, other specified; Y92.098 Other place in other non-institutional residence as the place of occurrence of the external cause; Y99.8 Other external cause status
CPT/HCPCS: 99283; 73000-LT; 73000-RT